=== PATIENT | female | born 1975 | race Two or more races ===

== ENCOUNTER 2016-09-27 20:16 | Emergency (ER) | payer SELFPAY ==
[~2016-09-27] VITALS: Ht 152.4 cm; Wt 76.7 kg
[2016-09-27 20:20] VITALS: BP 164/90
[2016-09-27] MEDS ORDERED: LISI2.5T PO (20:29)
[2016-09-27] MEDS ORDERED: ESOM20CA PO (20:29)
[2016-09-27] MEDS ORDERED: HYDR12.53 PO (20:29)
[2016-09-27] MEDS ORDERED: KETOROLAC TROMETHAMINE 30 MG/ML INJ. IV ONE (20:45)
[2016-09-27] MEDS ORDERED: MORPHINE SULFATE 10 MG/ML VIAL. IV ONE (20:45)
[2016-09-27] MEDS ORDERED: IV NORMAL SALINE 1000ML BAG 1,000 ML IV ONE (20:45)
[2016-09-27] MEDS ORDERED: ONDANSETRON PF 4 MG/2 ML VIAL. IV ONE (20:45)
--- NOTE | 2016-09-27 20:45 | PHYS DOC ---
Past Medical History Past Medical History: GERD, Hypertension Past Surgical History: Other Alcohol Use: Occasionally Drug Use: None Adult General Chief Complaint Chief Complaint: FLANK PAIN HPI HPI Patient is a 41 year old female with history of hypertension and acid reflux who presents today with moderate left flank pain radiating to the left upper quadrant that began yesterday. Patient denies any nausea or urgency frequency dysuria or hematuria. Denies any previous history of kidney stones. Denies any history of alcohol abuse. Review of Systems Review of Systems Constitutional: Denies fever or chills [] Eyes: Denies change in visual acuity, redness, or eye pain [] HENT: Denies nasal congestion or sore throat [] Respiratory: Denies cough or shortness of breath [] Cardiovascular: No additional information not addressed in HPI [] GI: Denies abdominal pain, nausea, vomiting, bloody stools or diarrhea [] : Left flank pain Musculoskeletal: Denies back pain or joint pain [] Integument: Denies rash or skin lesions [] Neurologic: Denies headache, focal weakness or sensory changes [] Endocrine: Denies polyuria or polydipsia [] Current Medications Current Medications Current Medications Medications (Trade) Dose Ordered Sig/Imani Start Time Stop Time Status Last Admin Dose Admin Ketorolac Tromethamine (Toradol) 30 mg 1X ONCE 09/27/16 20:45 09/27/16 20:46 DC 09/27/16 21:00 30 MG Morphine Sulfate 5 mg 1X ONCE 09/27/16 20:45 09/27/16 20:46 DC 09/27/16 21:01 5 MG Ondansetron HCl (Zofran) 4 mg 1X ONCE 09/27/16 20:45 09/27/16 20:46 DC 09/27/16 21:00 4 MG Sodium Chloride 1,000 ml @ 1,000 mls/hr 1X ONCE 09/27/16 20:45 09/27/16 21:44 DC 09/27/16 21:00 1,000 MLS/HR Allergies Allergies Allergies Coded Allergies Type Severity Reaction Last Updated Verified No Known Drug Allergies 09/27/16 No Physical Exam Physical Exam Constitutional: Well developed, well nourished, no acute distress, non-toxic appearance. [] HENT: Normocephalic, atraumatic, bilateral external ears normal, oropharynx moist, no oral exudates, nose normal. [] Eyes: PERRLA, EOMI, conjunctiva normal, no discharge. [] Neck: Normal range of motion, no tenderness, supple, no stridor. [] Cardiovascular:Heart rate regular rhythm, no murmur [] Lungs & Thorax: Bilateral breath sounds clear to auscultation [] Abdomen: Bowel sounds normal, soft, no tenderness, no masses, no pulsatile masses. [] Skin: Warm, dry, no erythema, no rash. [] Back: No tenderness, mild left CVA tenderness. [] Extremities: No tenderness, no cyanosis, no clubbing, ROM intact, no edema. [] Neurologic: Alert and oriented X 3, normal motor function, normal sensory function, no focal deficits noted. [] Psychologic: Affect normal, judgement normal, mood normal. [] Current Patient Data Vital Signs Vital Signs Date Time Temp Pulse Resp B/P (MAP) Pulse Ox O2 Delivery O2 Flow Rate FiO2 09/27/16 21:01 20 99 09/27/16 20:20 98.7 90 164/90 (114) Room Air 98.7 Lab Values Laboratory Tests Test 09/27/16 19:43 09/27/16 20:25 09/27/16 20:45 POC Urine HCG, Qualitative Hcg negative (Negative) Urine Collection Type Unknown Urine Color Yellow Urine Clarity Clear Urine pH 6.5 Urine Specific [place] 1.025 Urine Protein Negative mg/dL (NEG-TRACE) Urine Glucose (UA) Negative mg/dL (NEG) Urine Ketones (Stick) Negative mg/dL (NEG) Urine Blood Large (NEG) Urine Nitrite Negative (NEG) Urine Bilirubin Negative (NEG) Urine Urobilinogen Dipstick 1.0 mg/dL (0.2 mg/dL) Urine Leukocyte Esterase Small (NEG) Urine RBC >40 /HPF (0-2) Urine WBC 5-10 /HPF (0-4) Urine Squamous Epithelial Cells Many /LPF Urine Bacteria Moderate /HPF (0-FEW) Urine Opiates Screen Neg (NEG) Urine Methadone Screen Neg (NEG) Urine Barbiturates Neg (NEG) Urine Phencyclidine Screen Neg (NEG) Urine Amphetamine/Methamphetamine Neg (NEG) Urine Benzodiazepines Screen Neg (NEG) Urine Cocaine Screen Neg (NEG) Urine Cannabinoids Screen Neg (NEG) Urine Ethyl Alcohol Neg (NEG) White Blood Count 8.6 x10^3/uL (4.0-11.0) Red Blood Count 4.15 x10^6/uL (3.50-5.40) Hemoglobin 11.6 g/dL (12.0-15.5) L Hematocrit 34.8 % (36.0-47.0) L Mean Corpuscular Volume 84 fL (79-100) Mean Corpuscular Hemoglobin 28 pg (25-35) Mean Corpuscular Hemoglobin Concent 33 g/dL (31-37) Red Cell Distribution Width 14.2 % (11.5-14.5) Platelet Count 279 x10^3/uL (140-400) Neutrophils (%) (Auto) 59 % (31-73) Lymphocytes (%) (Auto) 33 % (24-48) Monocytes (%) (Auto) 6 % (0-9) Eosinophils (%) (Auto) 2 % (0-3) Basophils (%) (Auto) 1 % (0-3) Neutrophils # (Auto) 5.0 x10^3uL (1.8-7.7) Lymphocytes # (Auto) 2.8 x10^3/uL (1.0-4.8) Monocytes # (Auto) 0.5 x10^3/uL (0.0-1.1) Eosinophils # (Auto) 0.2 x10^3/uL (0.0-0.7) Basophils # (Auto) 0.1 x10^3/uL (0.0-0.2) Sodium Level 143 mmol/L (136-145) Potassium Level 3.4 mmol/L (3.5-5.1) L Chloride Level 106 mmol/L (98-107) Carbon Dioxide Level 27 mmol/L (21-32) Anion Gap 10 (6-14) Blood Urea Nitrogen 13 mg/dL (7-20) Creatinine 0.8 mg/dL (0.6-1.0) Estimated GFR (Cockcroft-Gault) 78.7 BUN/Creatinine Ratio 16 (6-20) Glucose Level 155 mg/dL (70-99) H Calcium Level 8.5 mg/dL (8.5-10.1) Total Bilirubin 0.3 mg/dL (0.2-1.0) Aspartate Amino Transferase (AST) 19 U/L (15-37) Alanine Aminotransferase (ALT) 32 U/L (14-59) Alkaline Phosphatase 112 U/L (46-116) Total Protein 7.5 g/dL (6.4-8.2) Albumin 3.5 g/dL (3.4-5.0) Albumin/Globulin Ratio 0.9 (1.0-1.7) L Lipase 135 U/L (73-393) Ethyl Alcohol Level < 10 mg/dL (0-10) Laboratory Tests 09/27/16 20:45 Laboratory Tests 09/27/16 20:45 EKG EKG [] Radiology/Procedures Radiology/Procedures [] Course & Med Decision Making Course & Med Decision Making Pertinent Labs and Imaging studies reviewed. (See chart for details) This is a 41-year-old female patient who presents today ED today with left flank pain radiating to the left upper quadrant that began yesterday. Negative urine hCG. Urine positive for infection. CBC CMP lipase with no acute findings. CT of the abdomen and pelvic is negative for any acute findings. Patient was discharged with Cipro Ultram and promethazine. Follow-up with PCP in 1-2 weeks. Instructed to return to the ED if symptoms worsen. Dragon Disclaimer Dragon Disclaimer This electronic medical record was generated, in whole or in part, using a voice recognition dictation system. Departure Departure Impression: Primary Impression: Pyelonephritis Disposition: 01 HOME, SELF-CARE Condition: STABLE Patient Instructions: Pyelonephritis, Adult, [id number] Additional Instructions: You were seen with a kidney infection. Take the antibiotics prescribed as ordered ensure you complete them. Come back to the ED if symptoms worsen otherwise follow-up with your own doctor in 1-2 weeks. Scripts Promethazine Hcl (PROMETHAZINE HCL) 25 Mg Tablet 1 TAB PO PRN Q6HRS, #20 TAB Prov: MUTCANDYAALEXANDRA POLITICAL REPORTER 09/27/16 Tramadol Hcl (ULTRAM) 50 Mg Tablet 1 TAB PO Q6HRS, #30 TAB Prov: MUTUNGAALEXANDRA POLITICAL REPORTER 09/27/16 Ciprofloxacin Hcl (CIPRO) 500 Mg Tablet 1 TAB PO BID, #14 TAB Prov: MUTUNGAALEXANDRA POLITICAL REPORTER 09/27/16 MUTUNGAALEXANDRA POLITICAL REPORTER Sep 27, 2016 20:45
[2016-09-27 20:52] LABS: BASO # 0.1 x10^3/uL (0.0-0.2); BASO % 1 % (0-3); EOS % 2 % (0-3); HEMATOCRIT 34.8 % (36.0-47.0); HEMOGLOBIN 11.6 g/dL (12.0-15.5); LYMPH # 2.8 x10^3/uL (1.0-4.8); LYMPH % 33 % (24-48); MEAN CORPUSCULAR HEMOGLOBIN 28 pg (25-35); MEAN CORPUSCULAR HGB CONC 33 g/dL (31-37); MEAN CORPUSCULAR VOLUME 84 fL (79-100); MONO % 6 % (0-9); NEUT % 59 % (31-73); PLATELET COUNT 279 x10^3/uL (140-400); RED BLOOD COUNT 4.15 x10^6/uL (3.50-5.40); RED CELL DISTRIBUTION WIDTH 14.2 % (11.5-14.5); WHITE BLOOD COUNT 8.6 x10^3/uL (4.0-11.0)
[2016-09-27 20:56] LABS: BILIRUBIN,URINE NEGATIVE (NEG); GLUCOSE,URINE NEGATIVE (NEG); NITRITE,URINE NEGATIVE (NEG); PH,URINE 6.5; PROTEIN,URINE NEGATIVE (NEG-TRACE)
[2016-09-27 21:05] LABS: CALCIUM 8.5 mg/dL (8.5-10.1); CREATININE 0.8 mg/dL (0.6-1.0); GFR 78.7; POTASSIUM 3.4 mmol/L (3.5-5.1)
[2016-09-27 21:06] LABS: BARBITURATES NEG (NEG); BENZODIAZEPINES NEG (NEG); CANNABINOIDS NEG (NEG); COCAINE NEG (NEG); METHADONE NEG (NEG); OPIATES NEG (NEG); PHENCYCLIDINE NEG (NEG)
--- NOTE | 2016-09-27 21:10 | RAD ---
Indication: Left flank pain for 2 days. Axial imaging through the abdomen and pelvis was performed without contrast. One or more of the following individualized dose reduction techniques were utilized for this examination: 1. Automated exposure control 2. Adjustment of the mA and/or kV according to patient size 3. Use of iterative reconstruction technique No prior studies are available for comparison. The lung bases are clear. The liver is unremarkable. The gallbladder is contracted. The pancreas and spleen are unremarkable. No adrenal mass is detected. No renal calculi or hydronephrosis is seen. No ureteral calculi are detected. The aorta is nonaneurysmal. The small and large bowel loops are normal caliber. There is no ascites. The uterus and bladder are unremarkable. No acute bony abnormality is detected. IMPRESSION: Unremarkable noncontrast CT of the abdomen and pelvis. Electronically signed by: Tod Higuera MD (09/27/2016 9:07 PM) [facility]
[2016-09-27 21:18] LABS: BACTERIA,URINE MODERATE /HPF (0-FEW); RBC,URINE >40 /HPF (0-2); SQUAMOUS EPITHELIAL CELL,UR MANY /LPF
[2016-09-27 21:21] LABS: ALBUMIN 3.5 g/dL (3.4-5.0); ALBUMIN/GLOBULIN RATIO 0.9 (1.0-1.7); TOTAL BILIRUBIN 0.3 mg/dL (0.2-1.0); TOTAL PROTEIN 7.5 g/dL (6.4-8.2)
[2016-09-27] MEDS ORDERED: CIPR500T94 PO (21:50)
[2016-09-27] MEDS ORDERED: PROM25TA10 PO (21:50)
[2016-09-27] MEDS ORDERED: TRAM-48 PO (21:50)
== END 2016-09-27 22:00 | disposition home or self-care (01) ==
LOC: ER 20:16
DX: N12 Tubulo-interstitial nephritis, not specified as acute or chronic (principal); I10 Essential (primary) hypertension; K21.9 Gastro-esophageal reflux disease without esophagitis
CPT/HCPCS: 36415; 74176; 80053; 80307; 81001; 81025; 83690; 85025; 87086; 96361; 96374; 96375; 99285; G0480; J1885; J2270; J2405; J7030; 87186; G0479

== ENCOUNTER 2020-05-02 18:19 | Observation (INO) | payer SELFPAY ==
[~2020-05-02] VITALS: Ht 152.4 cm; Wt 78.5 kg
[~2020-05-02 18:19] MED LIST: CIPR500T94 PO; ESOM20CA PO; HYDR12.575 PO; LISI2.5T PO; PROM25TA10 PO; TRAM-48 PO
--- NOTE | 2020-05-02 22:07 | PHYS DOC ---
Past Medical History Past Medical History: GERD, Hypertension Past Surgical History: Other Smoking Status: Never Smoker Alcohol Use: Occasionally Drug Use: None General Adult EDM: Chief Complaint: FLANK PAIN HPI: HPI: Patient is a 45 year old female with history of hypertension presents emergency department for flank pain and abdominal pain. Patient reports pain started around 1 PM this afternoon. Located in the left side of the back radiates around to the front of the abdomen. Patient has never had pain like this in the past. She has had some dysuria. She has had some nausea and vomiting. No hematuria vaginal bleeding vaginal discharge vomiting diarrhea constipation chest pain shortness breath fever chills. Patient has had sections. No other abdominal surgeries. Review of Systems: Review of Systems: Review of Systems: Constitutional: Denies fever or chills Eyes: Denies redness or eye pain HENT: Denies nasal congestion or sore throat Respiratory: Denies cough or shortness of breath Cardiovascular: Denies chest pain or palpitations GI: denies denies vomiting or diarrhea : Denieshematuria Musculoskeletal: Denies back pain or joint pain Integument: Denies rash or skin lesions Neurologic: Denies headache, focal weakness or sensory changes Heart Score: C/O Chest Pain: No Allergies: Allergies: Allergies Coded Allergies Type Severity Reaction Last Updated Verified No Known Drug Allergies 09/27/16 No Physical Exam: PE: *GENERAL APPEARANCE: Awake and alert. Cooperative. No acute distress. Non toxic appearing. HEAD: Normocephalic. Atraumatic. EYES: EOM's grossly intact. Sclera anicteric. Conjunctiva clear ENT:. Airway patent. Mucous membranes moist. No trismus. Tolerating secretions. NECK: Supple. Trachea midline. HEART: Regular rate and rhythm. Radial pulses 2+. Good capillary refill. LUNGS: Respirations unlabored. Clear to auscultation bilaterally. No rales, rhonchi, wheezing or retractions. ABDOMEN: Soft.No guarding or rebound. Left CVA tenderness. Diffuse lower abdominal tenderness. No palpable or pulsatile mass. EXTREMITIES: No acute deformities. No edema, erythema or calf tenderness. SKIN: Warm and dry. No rash. NEUROLOGICAL: Alert and oriented x3. No gross neurological deficits. Moves all 4 extremities spontaneously. PSYCHIATRIC: Normal mood. EKG: EKG: [] Radiology/Procedures: Radiology/Procedures: []PATIENT: EVETTE EISENBERGCOUNT: [id number]#: [id number] : 1975 LOCATION: ER AGE: 45 SEX: F EXAM STATUS: REG ER ORD. PHYSICIAN: MERLE PARKER DO REASON: flank pain and lower abd pain PROCEDURE: CT ABD PELV W/ IV CONTRST ONLY CT abdomen and pelvis with contrast: Reason for examination: Flank pain and lower abdominal pain. Comparison is made to previous study dated 09/23/2016. Helical images were obtained through the abdomen and pelvis with intravenous administration of 75 cc Omnipaque 300. Reconstruction was performed in sagittal and coronal planes. Exposure: One or more of the following individualized dose reduction techniques were utilized for this examination: 1. Automated exposure control 2. Adjustment of the mA and/or kV according to patient size 3. Use of iterative reconstruction technique. The lung bases are clear. The heart size is normal with no pericardial effusion. No abnormality seen at the liver, spleen, adrenal glands, gallbladder or pancreas. The abdominal aorta and inferior vena cava show no gross abnormalities. Colon shows no diverticulosis, diverticulitis or colitis. There is no evidence of appendicitis. The small intestinal tract shows no abnormal dilatation, wall thickening or obstruction. No abnormality is seen at the stomach or duodenum. The kidneys show a small nonobstructing calculus at the midpole of the left kidney. No hydronephrosis or obstructive uropathy is evident. Note is made of tiny cysts bilaterally. No abnormality is seen at the bladder, uterus or ovaries. No pelvic masses are seen. No free fluid or free air seen in the abdomen or pelvis. No acute bony abnormalities are seen. IMPRESSION: Tiny cysts bilaterally in the kidneys. Small nonobstructing calculus at the midpole the left kidney but no hydronephrosis or obstructive uropathy evident. Electronically signed by: Amy Cartwright MD (05/02/2020 11:33 PM) [facility] DICTATED and SIGNED BY: AMY CARTWRIGHT MD DATE: 05/02/20 [id number] 0 Course & Med Decision Making: Course & Med Decision Making Medical decision making: This is a 45-year-old female presents with left-sided flank pain abdominal pain nausea vomiting dysuria. Here in the emergency department patient appears no acute distress. Afebrile. Not tachycardic. Blood pressure stable. White blood cell count of 13. Lactate 0.8. Creatinine 0.7. Patient has urinary tract infection. hCG negative. CT scan shows tiny bilateral cyst. Mild nonobstructing calculus in the midpole of left kidney. Patient was given Rocephin fluids and pain medication. At this time based on patient's symptoms and findings will admit to the hospital for further observation and evaluation. Spoke with patient. Agreeable to admission. They are aware of all labs and imaging. All questions answered and patient stable at time of admission. Dragon Disclaimer: [employer] Disclaimer: This electronic medical record was generated, in whole or in part, using a voice recognition dictation system. Departure Departure Impression: Primary Impression: Pyelonephritis Additional Impression: Left flank pain Disposition: ADMITTED INPT THIS HOSP (Patient admitted to Dr. Mendoza at 0015. Patient stable at time of admission. Discussed case with Dr. Mendoza agreeable to admission and plan. We will see the patient.) Admitting Physician: BARB (Admitted on May 03, [address] Chow. Patient stable at time of admission.) Condition: GOOD Referrals: UNKNOWN PCP NAME (PCP) Scripts Sulfamethoxazole/Trimethoprim (BACTRIM DS TABLET) 1 Each Tablet 1 TAB PO BID for Pyelonephritis for 7 Days, #14 TAB 0 Refills Prov: FORREST YOUNG MD 05/04/20 Lactobacillus Rhamnosus Gg (CULTURELLE) 1 Each Cap.sprink 1 CAP PO BID for UTI for 7 Days, #14 CAP Prov: FORREST YOUNG MD 05/04/20 Tramadol Hcl (ULTRAM) 50 Mg Tablet 1 TAB PO PRN Q6HRS PRN for PAIN for 6 Days, #20 TAB Prov: FORREST YOUNG MD 05/04/20 MERLE PARKER DO May 02, 2020 22:07
[2020-05-02 22:14] LABS: BILIRUBIN,URINE NEGATIVE (NEG); CLARITY,URINE CLEAR; COLOR,URINE YELLOW; NITRITE,URINE NEGATIVE (NEG); PROTEIN,URINE NEGATIVE (NEG-TRACE); UROBILINOGEN,URINE 0.2 mg/dL (0.2 mg/dL)
[2020-05-02 22:19] LABS: BACTERIA,URINE MODERATE /HPF (0-FEW)
[2020-05-02 22:20] LABS: RBC,URINE 0 /HPF (0-2)
[2020-05-02 22:24] LABS: BASO % 0 % (0-3); EOS # 0.1 x10^3/uL (0.0-0.7); EOS % 1 % (0-3); HEMATOCRIT 38.1 % (36.0-47.0); HEMOGLOBIN 12.2 g/dL (12.0-15.5); LYMPH # 1.5 x10^3/uL (1.0-4.8); LYMPH % 12 % (24-48); MEAN CORPUSCULAR HEMOGLOBIN 28 pg (25-35); MEAN CORPUSCULAR HGB CONC 32 g/dL (31-37); MEAN CORPUSCULAR VOLUME 87 fL (79-100); MONO # 0.9 x10^3/uL (0.0-1.1); MONO % 7 % (0-9); NEUT # 10.7 x10^3/uL (1.8-7.7); NEUT % 81 % (31-73); PLATELET COUNT 246 x10^3/uL (140-400); RED BLOOD COUNT 4.37 x10^6/uL (3.50-5.40); RED CELL DISTRIBUTION WIDTH 13.5 % (11.5-14.5); WHITE BLOOD COUNT 13.1 x10^3/uL (4.0-11.0)
[2020-05-02] MEDS ORDERED: ONDANSETRON PF 4 MG/2 ML VIAL. IVP ONE (22:30)
[2020-05-02] MEDS ORDERED: MORPHINE SULFATE 4 MG/ML VIAL. IV ONE (22:30)
[2020-05-02 22:32] LABS: CALCIUM 8.8 mg/dL (8.5-10.1); CREATININE 0.7 mg/dL (0.6-1.0); GFR 90.1; POTASSIUM 3.5 mmol/L (3.5-5.1)
[2020-05-02 22:38] LABS: ALBUMIN 3.8 g/dL (3.4-5.0); TOTAL BILIRUBIN 0.6 mg/dL (0.2-1.0); TOTAL PROTEIN 7.8 g/dL (6.4-8.2)
[2020-05-02] MEDS ORDERED: IOHEXOL 300 MG/ML 100ML VIAL. ONE (22:45)
[2020-05-02] MEDS ORDERED: CONTRAST GIVEN. MC PRN (22:45)
[2020-05-02] MEDS ORDERED: IOHEXOL 300 MG/ML 100ML VIAL. IV ONE (23:00)
--- NOTE | 2020-05-02 23:36 | RAD ---
CT abdomen and pelvis with contrast: Reason for examination: Flank pain and lower abdominal pain. Comparison is made to previous study dated 09/23/2016. Helical images were obtained through the abdomen and pelvis with intravenous administration of 75 cc Omnipaque 300. Reconstruction was performed in sagittal and coronal planes. Exposure: One or more of the following individualized dose reduction techniques were utilized for thi s examination: 1. Automated exposure control 2. Adjustment of the mA and/or kV according to patient size 3. Use of iterative reconstruction technique. The lung bases are clear. The heart size is normal with no pericardial effusion. No abnormality seen at the liver, spleen, adrenal glands, gallbladder or pancreas. The abdominal aort a and inferior vena cava show no gross abnormalities. Colon shows no diverticulosis, diverticulitis o r colitis. There is no evidence of appendicitis. The small intestinal tract shows no abnormal dilatat ion, wall thickening or obstruction. No abnormality is seen at the stomach or duodenum. The kidneys s how a small nonobstructing calculus at the midpole of the left kidney. No hydronephrosis or obstructi ve uropathy is evident. Note is made of tiny cysts bilaterally. No abnormality is seen at the bladder, uterus or ovaries. No pelvic masses are seen. No free fluid or free air seen in the abdomen or pelvis. No acute bony abnormalities are seen. IMPRESSION: Tiny cysts bilaterally in the kidneys. Small nonobstructing calculus at the midpole the left kidney but no hydronephrosis or obstructive uro rony evident. Electronically signed by: Amy Alaniz MD (05/02/2020 11:33 PM) [facility]
[2020-05-03] MEDS ORDERED: cefTRIAXone IV Push 1 GM VIAL. IVP ONE
[2020-05-03] MEDS ORDERED: ONDANSETRON PF 4 MG/2 ML VIAL. IV PRN ×2 (00:15→08:15)
[2020-05-03] MEDS: MORPHINE SULFATE 2 MG/ML VIAL. IV PRN ×2 (00:51→03:17)
[2020-05-03 02:50] VITALS: BP 99/57
--- NOTE | 2020-05-03 02:50 | NUR ---
Admit from ED via W/c. C/o left flank pain since 05/01 at 1000. Togolese is primary language.
[2020-05-03 07:15] VITALS: BP 112/55
--- NOTE | 2020-05-03 07:21 | NUR ---
Cleared reassessments from ED on [facility].
--- NOTE | 2020-05-03 08:12 | PDOC1 ---
History and Physical Date of Admission Date of Admission DATE: 05/03/20 TIME: 08:06 Identification/Chief Complaint Chief Complaint Abdominal pain Source Source: Patient History of Present Illness History of Present Illness Ms Groves is a 45 year old female with history of hypertension and GERD who presents emergency department c/o left flank pain and abdominal pain. Patient reports pain started at 1300 on 05/02/20. Located in the left side of the back radiates around to the front of the abdomen. Patient has never had pain like this in the past. She has had some dysuria. She has had some nausea and vomiting. No hematuria vaginal bleeding vaginal discharge vomiting diarrhea constipation chest pain shortness breath fever chills. Patient has had sections. No other abdominal surgeries. No vaginal discharge, no diarrhea. Significant nausea with dry heaving. Pain is colicky, comes in waves. WBC 13. CT with non-obstructing small left renal stone, no appendicitis. Admitted for further care. Past Medical History Cardiovascular: HTN GI: GERD Past Surgical History Past Surgical History: Family History Family History: Hypertension Social History Smoke: No ALCOHOL: social Drugs: None Current Problem List Problem List Problems Medical Problems: (1) Left flank pain Status: Acute (2) Pyelonephritis Status: Acute Current Medications Current Medications Current Medications Morphine Sulfate (Morphine Sulfate) 4 mg 1X ONCE IV Last administered on 05/02/20at 22:23; Start 05/02/20 at 22:30; Stop 05/02/20 at 22:31; Status DC Ondansetron HCl (Zofran) 4 mg 1X ONCE IVP Last administered on 05/02/20at 22:23; Start 05/02/20 at 22:30; Stop 05/02/20 at 22:31; Status DC Iohexol (Omnipaque 300 Mg/ml) 75 ml 1X ONCE IV ; Start 05/02/20 at 23:00; Stop 05/02/20 at 23:01; Status DC Info (CONTRAST GIVEN -- Rx MONITORING) 1 each PRN DAILY PRN MC SEE COMMENTS; Start 05/02/20 at 22:45; Stop 05/04/20 at 22:44 Iohexol (Omnipaque 300 Mg/ml) 100 ml STK-MED ONCE .ROUTE ; Start 05/02/20 at 22:45; Stop 05/02/20 at 22:45; Status DC Ceftriaxone Sodium (Rocephin) 1 gm 1X ONCE IVP Last administered on 05/03/20at 00:51; Start 05/03/20 at 00:00; Stop 05/03/20 at 00:01; Status DC Sodium Chloride 1,000 ml @ 1,000 mls/hr 1X ONCE IV Last administered on 05/03/20at 00:50; Start 05/03/20 at 00:00; Stop 05/03/20 at 00:59; Status DC Ondansetron HCl (Zofran) 4 mg PRN Q8HRS PRN IV NAUSEA/VOMITING 1ST CHOICE; Start 05/03/20 at 00:15; Stop 05/04/20 at 00:14 Morphine Sulfate (Morphine Sulfate) 2 mg PRN Q2HR PRN IV SEVERE PAIN 7-10 Last administered on 05/03/20at 03:17; Start 05/03/20 at 00:15; Stop 05/04/20 at 00:14 Active Scripts Active Promethazine Hcl 25 Mg Tablet 1 Tab PO PRN Q6HRS Ultram (Tramadol Hcl) 50 Mg Tablet 1 Tab PO Q6HRS Cipro (Ciprofloxacin Hcl) 500 Mg Tablet 1 Tab PO BID Reported Nexium Capsule (Esomeprazole Magnesium) 20 Mg Capsule.dr 1 Cap PO DAILY Hydrochlorothiazide Capsule (Hydrochlorothiazide) 12.5 Mg Capsule 1 Cap PO DAILY Lisinopril 2.5 Mg Tablet 1 Tab PO DAILY Allergies Allergies: Coded Allergies: No Known Drug Allergies (Unverified , 09/27/16) ROS General: YES: Chills, Night Sweats, Fatigue, Malaise, Appetite; No: Other PSYCHOLOGICAL ROS: No: Anxiety, Behavioral Disorder, Concentration difficultie, Decreased libido, Depression, Disorientation, Hallucinations, Hostility, Irritablity, Memory difficulties, Mood Swings, Obsessive thoughts, Physical abuse, Sexual abuse, Sleep disturbances, Suicidal ideation, Other Eyes: No Blurry vision, No Decreased vision, No Double vision, No Dry eyes, No Excessive tearing, No Eye Pain, No Itchy Eyes, No Loss of vision, No Photophobia, No Scotomata, No Uses contacts, No Uses glasses, No Other HEENT: No: Heacaches, Visual Changes, Hearing change, Nasal congestion, Nasal discharge, Oral lesions, Sinus pain, Sore Throat, Epistaxis, Sneezing, Snoring, Tinnitus, Vertigo, Vocal changes, Other ALLERGY AND IMMUNOLOGY: No: Hives, Insect Bite Sensitivity, Itchy/Watery Eyes, Nasal Congestion, Post Nasal Drip, Seasonal Allergies, Other Hematological and Lymphatic: No: Bleeding Problems, Blood Clots, Blood Transfusions, Brusing, Night Sweats, Pallor, Swollen Lymph Nodes, Other ENDOCRINE: No: Breast Changes, Galactorrhea, Hair Pattern Changes, Hot Flashes, Malaise/lethargy, Mood Swings, Palpitations, Polydipsia/polyuria, Skin Changes, Temperature Intolerance, Unexpected Weight Changes, Other Breast: No New/Changing Breast Lumps, No Nipple changes, No Nipple discharge, No Other Respiratory: No: Cough, Hemoptysis, Orthopnea, Pleuritic Pain, Shortness of breath, SOB with excertion, Sputum Changes, Stridor, Tachypnea, Wheezing, Other Cardiovascular: No Chest Pain, No Palpitations, No Orthopnea, No Paroxysmal Noc. Dyspnea, No Edema, No Lt Headedness, No Other Gastrointestinal: No Nausea, No Vomiting, No Abdominal Pain, No Diarrhea, No Constipation, No Melena, No Hematochezia, No Other Genitourinary: No Dysuria, No Frequency, No Incontinence, No Hematuria, No Retention, No Discharge, No Urgency, No Pain, No Flank Pain, No Other, No , No , No , No , No , No , No Musculoskeletal: No Gait Disturbance, No Joint Pain, No Joint Stiffness, No Joint Swelling, No Muscle Pain, No Muscular Weakness, No Pain In:, No Swelling In:, No Other Neurological: No Behavorial Changes, No Bowel/Bladder ControlChng, No Confusion, No Dizziness, No Gait Disturbance, No Headaches, No Impaired Coord/balance, No Memory Loss, No Numbness/Tingling, No Seizures, No Speech Problems, No Tremors, No Visual Changes, No Weakness, No Other Skin: No Dry Skin, No Eczema, No Hair Changes, No Lumps, No Mole Changes, No Mottling, No Nail Changes, No Pruritus, No Rash, No Skin Lesion Changes, No Other, No Acne Physical Exam General: Alert, Oriented X3, Cooperative, moderate distress HEENT: Atraumatic, PERRLA, EOMI, Mucous membr. moist/pink Lungs: Clear to auscultation, Normal air movement Heart: S1S2, RRR, no thrills, no rubs, no gallops, no murmurs Abdomen: Normal bowel sounds, Soft, No hepatosplenomegaly, No masses, Other (Left flank pain, positive) Rectal Exam: not examined Extremities: No clubbing, No cyanosis, No edema, Normal pulses, No tenderness/swelling Skin: No rashes, No breakdown, No significant lesion Neuro: Normal gait, Normal speech, Strength at 5/5 X4 ext, Normal tone, Sensation intact, Cranial nerves 3-12 NL, Reflexes 2+ Psych/Mental Status: Mental status NL, Mood NL Vitals Vitals Vital Signs Date Time Temp Pulse Resp B/P (MAP) Pulse Ox O2 Delivery O2 Flow Rate FiO2 05/03/20 07:15 99.8 97 20 112/55 (74) 96 Room Air 99.8 Labs Labs Laboratory Tests Test 05/02/20 21:31 05/02/20 22:07 05/02/20 22:08 05/03/20 00:35 Urine Collection Type Unknown Urine Color Yellow Urine Clarity Clear Urine pH 7.0 (<5.0-8.0) Urine Specific [place] <=1.005 (1.000-1.030) Urine Protein Negative mg/dL (NEG-TRACE) Urine Glucose (UA) Negative mg/dL (NEG) Urine Ketones (Stick) Negative mg/dL (NEG) Urine Blood Trace (NEG) Urine Nitrite Negative (NEG) Urine Bilirubin Negative (NEG) Urine Urobilinogen Dipstick 0.2 mg/dL (0.2 mg/dL) Urine Leukocyte Esterase Moderate (NEG) Urine RBC 0 /HPF (0-2) Urine WBC 5-10 /HPF (0-4) Urine Squamous Epithelial Cells Few /LPF Urine Bacteria Moderate /HPF (0-FEW) Bedside Urine HCG, Qualitative Hcg negative (Negative) White Blood Count 13.1 x10^3/uL (4.0-11.0) Red Blood Count 4.37 x10^6/uL (3.50-5.40) Hemoglobin 12.2 g/dL (12.0-15.5) Hematocrit 38.1 % (36.0-47.0) Mean Corpuscular Volume 87 fL (79-100) Mean Corpuscular Hemoglobin 28 pg (25-35) Mean Corpuscular Hemoglobin Concent 32 g/dL (31-37) Red Cell Distribution Width 13.5 % (11.5-14.5) Platelet Count 246 x10^3/uL (140-400) Neutrophils (%) (Auto) 81 % (31-73) Lymphocytes (%) (Auto) 12 % (24-48) Monocytes (%) (Auto) 7 % (0-9) Eosinophils (%) (Auto) 1 % (0-3) Basophils (%) (Auto) 0 % (0-3) Neutrophils # (Auto) 10.7 x10^3/uL (1.8-7.7) Lymphocytes # (Auto) 1.5 x10^3/uL (1.0-4.8) Monocytes # (Auto) 0.9 x10^3/uL (0.0-1.1) Eosinophils # (Auto) 0.1 x10^3/uL (0.0-0.7) Basophils # (Auto) 0.0 x10^3/uL (0.0-0.2) Sodium Level 137 mmol/L (136-145) Potassium Level 3.5 mmol/L (3.5-5.1) Chloride Level 104 mmol/L (98-107) Carbon Dioxide Level 22 mmol/L (21-32) Anion Gap 11 (6-14) Blood Urea Nitrogen 11 mg/dL (7-20) Creatinine 0.7 mg/dL (0.6-1.0) Estimated GFR (Cockcroft-Gault) 90.1 BUN/Creatinine Ratio 16 (6-20) Glucose Level 111 mg/dL (70-99) Calcium Level 8.8 mg/dL (8.5-10.1) Total Bilirubin 0.6 mg/dL (0.2-1.0) Aspartate Amino Transf (AST/SGOT) 15 U/L (15-37) Alanine Aminotransferase (ALT/SGPT) 26 U/L (14-59) Alkaline Phosphatase 87 U/L (46-116) Total Protein 7.8 g/dL (6.4-8.2) Albumin 3.8 g/dL (3.4-5.0) Albumin/Globulin Ratio 1.0 (1.0-1.7) Lactic Acid Level 0.8 mmol/L (0.4-2.0) Laboratory Tests Test 05/02/20 21:31 05/02/20 22:07 05/02/20 22:08 05/03/20 00:35 Urine Collection Type Unknown Urine Color Yellow Urine Clarity Clear Urine pH 7.0 (<5.0-8.0) Urine Specific [place] <=1.005 (1.000-1.030) Urine Protein Negative mg/dL (NEG-TRACE) Urine Glucose (UA) Negative mg/dL (NEG) Urine Ketones (Stick) Negative mg/dL (NEG) Urine Blood Trace (NEG) Urine Nitrite Negative (NEG) Urine Bilirubin Negative (NEG) Urine Urobilinogen Dipstick 0.2 mg/dL (0.2 mg/dL) Urine Leukocyte Esterase Moderate (NEG) Urine RBC 0 /HPF (0-2) Urine WBC 5-10 /HPF (0-4) Urine Squamous Epithelial Cells Few /LPF Urine Bacteria Moderate /HPF (0-FEW) Bedside Urine HCG, Qualitative Hcg negative (Negative) White Blood Count 13.1 x10^3/uL (4.0-11.0) Red Blood Count 4.37 x10^6/uL (3.50-5.40) Hemoglobin 12.2 g/dL (12.0-15.5) Hematocrit 38.1 % (36.0-47.0) Mean Corpuscular Volume 87 fL (79-100) Mean Corpuscular Hemoglobin 28 pg (25-35) Mean Corpuscular Hemoglobin Concent 32 g/dL (31-37) Red Cell Distribution Width 13.5 % (11.5-14.5) Platelet Count 246 x10^3/uL (140-400) Neutrophils (%) (Auto) 81 % (31-73) Lymphocytes (%) (Auto) 12 % (24-48) Monocytes (%) (Auto) 7 % (0-9) Eosinophils (%) (Auto) 1 % (0-3) Basophils (%) (Auto) 0 % (0-3) Neutrophils # (Auto) 10.7 x10^3/uL (1.8-7.7) Lymphocytes # (Auto) 1.5 x10^3/uL (1.0-4.8) Monocytes # (Auto) 0.9 x10^3/uL (0.0-1.1) Eosinophils # (Auto) 0.1 x10^3/uL (0.0-0.7) Basophils # (Auto) 0.0 x10^3/uL (0.0-0.2) Sodium Level 137 mmol/L (136-145) Potassium Level 3.5 mmol/L (3.5-5.1) Chloride Level 104 mmol/L (98-107) Carbon Dioxide Level 22 mmol/L (21-32) Anion Gap 11 (6-14) Blood Urea Nitrogen 11 mg/dL (7-20) Creatinine 0.7 mg/dL (0.6-1.0) Estimated GFR (Cockcroft-Gault) 90.1 BUN/Creatinine Ratio 16 (6-20) Glucose Level 111 mg/dL (70-99) Calcium Level 8.8 mg/dL (8.5-10.1) Total Bilirubin 0.6 mg/dL (0.2-1.0) Aspartate Amino Transf (AST/SGOT) 15 U/L (15-37) Alanine Aminotransferase (ALT/SGPT) 26 U/L (14-59) Alkaline Phosphatase 87 U/L (46-116) Total Protein 7.8 g/dL (6.4-8.2) Albumin 3.8 g/dL (3.4-5.0) Albumin/Globulin Ratio 1.0 (1.0-1.7) Lactic Acid Level 0.8 mmol/L (0.4-2.0) Images Images CT abdomen/pelvis: The lung bases are clear. The heart size is normal with no pericardial effusion. No abnormality seen at the liver, spleen, adrenal glands, gallbladder or pancreas. The abdominal aorta and inferior vena cava show no gross abnormalities. Colon shows no diverticulosis, diverticulitis or colitis. There is no evidence of appendicitis. The small intestinal tract shows no abnormal dilatation, wall thickening or obstruction. No abnormality is seen at the stomach or duodenum. The kidneys show a small nonobstructing calculus at the midpole of the left kidney. No hydronephrosis or obstructive uropathy is evident. Note is made of tiny cysts bilaterally. No abnormality is seen at the bladder, uterus or ovaries. No pelvic masses are seen. No free fluid or free air seen in the abdomen or pelvis. No acute bony abnormalities are seen. IMPRESSION: Tiny cysts bilaterally in the kidneys. Small nonobstructing calculus at the midpole the left kidney but no hydronephrosis or obstructive uropathy evident. VTE Prophylaxis Ordered VTE Prophylaxis Devices: No VTE Pharmacological Prophylaxi: No Assessment/Plan Assessment/Plan A/P: Left pyelonephritis - rocephin, toradol, nausea and pain control Sepsis - due to above Nausea and vomiting - admitted for inability to take PO. IVF and IV anti-emetics HTN - hold meds for low BP due to sepsis GERD - cont PPI FEN - General diet PPX - SCDs FULL CODE Dispo - inpatient for pyelonephritis, sepsis Justifications for Admission Other Justification FORREST YOUNG MD May 03, 2020 08:12
[2020-05-03] MEDS ORDERED: IV NORMAL SALINE 1000ML BAG 1,000 ML IV ONE ×2 (08:15)
[2020-05-03] MEDS ORDERED: KETOROLAC 30 MG/ML VIAL. IVP PRN (08:15)
[2020-05-03] MEDS: LOSARTAN POTASSIUM 25 MG TABLET. PO SCH (09:00)
--- NOTE | 2020-05-03 09:19 | NUR ---
SW following. Discussed with RN, pt from home, room air, regular diet. No consults as of yet. Med Assist following for self pay status. SW will continue to follow.
[2020-05-03 10:54] VITALS: BP 108/64
[2020-05-03] MEDS: cefTRIAXone IV Push 1 GM VIAL. IVP SCH (11:11)
[2020-05-03 14:58] VITALS: BP 102/59
[2020-05-03] MEDS ORDERED: MAGNESIUM HYDROXIDE 2,400 MG/30 ML ORAL.SUSP. PO PRN (17:45)
[2020-05-03] MEDS ORDERED: MAGNESIUM HYDROXIDE 2,400 MG/30 ML ORAL.SUSP. PO ONE (17:45)
[2020-05-03 19:00] VITALS: BP 99/56
[2020-05-03] MEDS: LACTOBACILLUS RHAMNOSUS GG 1 CAPSULE. PO SCH (20:43)
[2020-05-03 23:00] VITALS: BP 106/70
[2020-05-04 03:00] VITALS: BP 108/58
[2020-05-04 07:00] VITALS: BP 105/63
[2020-05-04 07:21] LABS: BASO % 0 % (0-3); EOS # 0.1 x10^3/uL (0.0-0.7); EOS % 2 % (0-3); HEMATOCRIT 35.5 % (36.0-47.0); HEMOGLOBIN 11.7 g/dL (12.0-15.5); LYMPH # 1.2 x10^3/uL (1.0-4.8); LYMPH % 15 % (24-48); MEAN CORPUSCULAR HEMOGLOBIN 29 pg (25-35); MEAN CORPUSCULAR HGB CONC 33 g/dL (31-37); MEAN CORPUSCULAR VOLUME 87 fL (79-100); MONO # 0.6 x10^3/uL (0.0-1.1); MONO % 8 % (0-9); NEUT # 5.6 x10^3/uL (1.8-7.7); NEUT % 75 % (31-73); PLATELET COUNT 203 x10^3/uL (140-400); RED BLOOD COUNT 4.08 x10^6/uL (3.50-5.40); RED CELL DISTRIBUTION WIDTH 13.9 % (11.5-14.5); WHITE BLOOD COUNT 7.5 x10^3/uL (4.0-11.0)
[2020-05-04 07:42] LABS: CALCIUM 8.4 mg/dL (8.5-10.1); CREATININE 0.7 mg/dL (0.6-1.0); GFR 90.1; POTASSIUM 3.5 mmol/L (3.5-5.1)
[2020-05-04] MEDS: LACTOBACILLUS RHAMNOSUS GG 1 CAPSULE. PO SCH (08:42)
[2020-05-04] MEDS: LOSARTAN POTASSIUM 25 MG TABLET. PO SCH (08:47)
--- NOTE | 2020-05-04 08:51 | PDOC ---
[employer] PROGRESS NOTE Date of Service DOS: DATE: 05/04/20 TIME: 08:50 Chief Complaint Chief Complaint A/P: Left pyelonephritis - rocephin, toradol, nausea and pain control. Urine culture with 100K cfu of e. coli, susceptibilities pending Sepsis - due to above Nausea and vomiting - admitted for inability to take PO. IVF and IV anti-emetics HTN - hold meds for low BP due to sepsis GERD - cont PPI FEN - General diet PPX - SCDs FULL CODE Dispo - inpatient for pyelonephritis, sepsis History of Present Illness History of Present Illness Ms Groves is a 45 year old female with history of hypertension and GERD who presents emergency department c/o left flank pain and abdominal pain. Patient reports pain started at 1300 on 05/02/20. Located in the left side of the back radiates around to the front of the abdomen. Patient has never had pain like this in the past. She has had some dysuria. She has had some nausea and vomiting. No hematuria vaginal bleeding vaginal discharge vomiting diarrhea constipation chest pain shortness breath fever chills. Patient has had sections. No other abdominal surgeries. No vaginal discharge, no diarrhea. S ignificant nausea with dry heaving. Pain is colicky, comes in waves. WBC 13. CT with non-obstructing small left renal stone, no appendicitis. Admitted for further care. 05/04: WBC 7.5. Afebrile. Left flank pain significantly improved. Asking for something p.o. instead of IV Toradol. Also still complaining of constipation asking for something in addition to the 3 bowel cathartic she has already received. Receiving third dose of Rocephin. Urine culture with 100,000 colony- forming units of E. coli no sensitivities available at this time. Based on patient improvement and improvement in sepsis discussed going home with 7 days of twice daily Bactrim given that she has received an appropriate IV course he can recover from pyelonephritis at home with tramadol. Given that she has a small left punctate renal stone advised to avoid hydrochlorothiazide and possibly switch from lisinopril to losartan to reduce her burden of possible nephrolithiasis. Has outpatient follow-up already scheduled at the [facility]. Vitals/I&O Vitals/I&O: Vital Signs Date Time Temp Pulse Resp B/P (MAP) Pulse Ox O2 Delivery O2 Flow Rate FiO2 05/04/20 07:00 97.9 96 18 105/63 (77) 96 Room Air 97.9 I & O 05/03/20 05/03/20 05/04/20 15:00 23:00 07:00 Intake Total 600 ml 360 ml Output Total 2 ml 0 ml Balance 598 ml 360 ml 0 ml Physical Exam General: Alert, Oriented X3, Cooperative, moderate distress Abdomen: Normal bowel sounds, Soft, No hepatosplenomegaly, No masses, Other (Left flank pain, positive) Extremities: No clubbing, No cyanosis, No edema, Normal pulses, No tenderness/swelling Skin: No rashes, No breakdown, No significant lesion Labs Labs: Laboratory Tests Test 05/04/20 05:55 White Blood Count 7.5 x10^3/uL (4.0-11.0) Red Blood Count 4.08 x10^6/uL (3.50-5.40) Hemoglobin 11.7 g/dL (12.0-15.5) Hematocrit 35.5 % (36.0-47.0) Mean Corpuscular Volume 87 fL (79-100) Mean Corpuscular Hemoglobin 29 pg (25-35) Mean Corpuscular Hemoglobin Concent 33 g/dL (31-37) Red Cell Distribution Width 13.9 % (11.5-14.5) Platelet Count 203 x10^3/uL (140-400) Neutrophils (%) (Auto) 75 % (31-73) Lymphocytes (%) (Auto) 15 % (24-48) Monocytes (%) (Auto) 8 % (0-9) Eosinophils (%) (Auto) 2 % (0-3) Basophils (%) (Auto) 0 % (0-3) Neutrophils # (Auto) 5.6 x10^3/uL (1.8-7.7) Lymphocytes # (Auto) 1.2 x10^3/uL (1.0-4.8) Monocytes # (Auto) 0.6 x10^3/uL (0.0-1.1) Eosinophils # (Auto) 0.1 x10^3/uL (0.0-0.7) Basophils # (Auto) 0.0 x10^3/uL (0.0-0.2) Sodium Level 141 mmol/L (136-145) Potassium Level 3.5 mmol/L (3.5-5.1) Chloride Level 106 mmol/L (98-107) Carbon Dioxide Level 24 mmol/L (21-32) Anion Gap 11 (6-14) Blood Urea Nitrogen 9 mg/dL (7-20) Creatinine 0.7 mg/dL (0.6-1.0) Estimated GFR (Cockcroft-Gault) 90.1 Glucose Level 99 mg/dL (70-99) Calcium Level 8.4 mg/dL (8.5-10.1) Assessment and Plan Assessmemt and Plan Problems Medical Problems: (1) Left flank pain Status: Acute (2) Pyelonephritis Status: Acute Comment Review of Relevant I have reviewed the following items tiff (where applicable) has been applied. Medications: Current Medications Medications (Trade) Dose Ordered Sig/Imani Route PRN Reason Start Time Stop Time Status Last Admin Dose Admin Ceftriaxone Sodium (Rocephin) 1 gm Q24H IVP 05/03/20 11:00 05/03/20 11:11 Lactobacillus Rhamnosus (Culturelle) 1 cap BID PO 05/03/20 21:00 05/04/20 08:42 Magnesium Hydroxide (Milk Of Magnesia) 2,400 mg 1X ONCE PO 05/03/20 17:45 05/03/20 17:46 DC 05/03/20 18:03 Justifications for Admission Other Justification FORREST YOUNG MD May 04, 2020 08:50
[2020-05-04] MEDS ORDERED: POTASSIUM CHLORIDE 20 MEQ TABLET.ER. PO ONE (09:00)
--- NOTE | 2020-05-04 09:22 | NUR ---
SW following. Discussed with RN, pt from home, room air, regular diet. Currently on IV rocephin. Med Assist screened pt, pt does not have any Medicaid qualifiers at this time. SW will continue to follow.
[2020-05-04] MEDS ORDERED: ACETAMINOPHEN 325 MG TABLET. PO PRN (10:30)
[2020-05-04] MEDS ORDERED: traMADol 50 MG TABLET PO PRN (10:30)
[2020-05-04] MEDS ORDERED: IBUPROFEN 200 MG TABLET. PO PRN (10:30)
[2020-05-04 11:00] VITALS: BP 103/70
[2020-05-04] MEDS: cefTRIAXone IV Push 1 GM VIAL. IVP SCH (11:02)
[2020-05-04] MEDS ORDERED: SMZ/TMP 800/160MG TABLET. PO SCH (12:00)
[2020-05-04] MEDS ORDERED: MAGNESIUM CITRATE 296 ML SOLUTION. PO ONE (12:00)
[2020-05-04] MEDS ORDERED: TRAM-48 PO (12:45)
[2020-05-04] MEDS ORDERED: LACT1CAP19 PO (12:45)
[2020-05-04] MEDS ORDERED: SULF1TAB24 PO (12:45)
--- NOTE | 2020-05-04 13:42 | PDOC3 ---
Discharge Summary Visit Information Date of Admission: May 03, 2020 Date of Discharge: May 04, 2020 Admitting Diagnosis: Left pyelonephritis Final Diagnosis Problems Medical Problems: (1) Left flank pain Status: Acute (2) Pyelonephritis Status: Acute Brief Hospital Course Allergies Allergies Coded Allergies Type Severity Reaction Last Updated Verified No Known Drug Allergies 09/27/16 No Vital Signs Vital Signs Date Time Temp Pulse Resp B/P (MAP) Pulse Ox O2 Delivery O2 Flow Rate FiO2 05/04/20 11:57 Room Air 05/04/20 11:00 98.0 90 16 103/70 (81) 97 98.0 Lab Results Laboratory Tests Test 05/02/20 21:31 05/02/20 22:07 05/02/20 22:08 05/03/20 00:35 Urine Collection Type Unknown Urine Color Yellow Urine Clarity Clear Urine pH 7.0 (<5.0-8.0) Urine Specific [place] <=1.005 (1.000-1.030) Urine Protein Negative mg/dL (NEG-TRACE) Urine Glucose (UA) Negative mg/dL (NEG) Urine Ketones (Stick) Negative mg/dL (NEG) Urine Blood Trace (NEG) Urine Nitrite Negative (NEG) Urine Bilirubin Negative (NEG) Urine Urobilinogen Dipstick 0.2 mg/dL (0.2 mg/dL) Urine Leukocyte Esterase Moderate (NEG) Urine RBC 0 /HPF (0-2) Urine WBC 5-10 /HPF (0-4) Urine Squamous Epithelial Cells Few /LPF Urine Bacteria Moderate /HPF (0-FEW) Bedside Urine HCG, Qualitative Hcg negative (Negative) White Blood Count 13.1 x10^3/uL (4.0-11.0) Red Blood Count 4.37 x10^6/uL (3.50-5.40) Hemoglobin 12.2 g/dL (12.0-15.5) Hematocrit 38.1 % (36.0-47.0) Mean Corpuscular Volume 87 fL (79-100) Mean Corpuscular Hemoglobin 28 pg (25-35) Mean Corpuscular Hemoglobin Concent 32 g/dL (31-37) Red Cell Distribution Width 13.5 % (11.5-14.5) Platelet Count 246 x10^3/uL (140-400) Neutrophils (%) (Auto) 81 % (31-73) Lymphocytes (%) (Auto) 12 % (24-48) Monocytes (%) (Auto) 7 % (0-9) Eosinophils (%) (Auto) 1 % (0-3) Basophils (%) (Auto) 0 % (0-3) Neutrophils # (Auto) 10.7 x10^3/uL (1.8-7.7) Lymphocytes # (Auto) 1.5 x10^3/uL (1.0-4.8) Monocytes # (Auto) 0.9 x10^3/uL (0.0-1.1) Eosinophils # (Auto) 0.1 x10^3/uL (0.0-0.7) Basophils # (Auto) 0.0 x10^3/uL (0.0-0.2) Sodium Level 137 mmol/L (136-145) Potassium Level 3.5 mmol/L (3.5-5.1) Chloride Level 104 mmol/L (98-107) Carbon Dioxide Level 22 mmol/L (21-32) Anion Gap 11 (6-14) Blood Urea Nitrogen 11 mg/dL (7-20) Creatinine 0.7 mg/dL (0.6-1.0) Estimated GFR (Cockcroft-Gault) 90.1 BUN/Creatinine Ratio 16 (6-20) Glucose Level 111 mg/dL (70-99) Calcium Level 8.8 mg/dL (8.5-10.1) Total Bilirubin 0.6 mg/dL (0.2-1.0) Aspartate Amino Transf (AST/SGOT) 15 U/L (15-37) Alanine Aminotransferase (ALT/SGPT) 26 U/L (14-59) Alkaline Phosphatase 87 U/L (46-116) Total Protein 7.8 g/dL (6.4-8.2) Albumin 3.8 g/dL (3.4-5.0) Albumin/Globulin Ratio 1.0 (1.0-1.7) Lactic Acid Level 0.8 mmol/L (0.4-2.0) Test 05/04/20 05:55 White Blood Count 7.5 x10^3/uL (4.0-11.0) Red Blood Count 4.08 x10^6/uL (3.50-5.40) Hemoglobin 11.7 g/dL (12.0-15.5) Hematocrit 35.5 % (36.0-47.0) Mean Corpuscular Volume 87 fL (79-100) Mean Corpuscular Hemoglobin 29 pg (25-35) Mean Corpuscular Hemoglobin Concent 33 g/dL (31-37) Red Cell Distribution Width 13.9 % (11.5-14.5) Platelet Count 203 x10^3/uL (140-400) Neutrophils (%) (Auto) 75 % (31-73) Lymphocytes (%) (Auto) 15 % (24-48) Monocytes (%) (Auto) 8 % (0-9) Eosinophils (%) (Auto) 2 % (0-3) Basophils (%) (Auto) 0 % (0-3) Neutrophils # (Auto) 5.6 x10^3/uL (1.8-7.7) Lymphocytes # (Auto) 1.2 x10^3/uL (1.0-4.8) Monocytes # (Auto) 0.6 x10^3/uL (0.0-1.1) Eosinophils # (Auto) 0.1 x10^3/uL (0.0-0.7) Basophils # (Auto) 0.0 x10^3/uL (0.0-0.2) Sodium Level 141 mmol/L (136-145) Potassium Level 3.5 mmol/L (3.5-5.1) Chloride Level 106 mmol/L (98-107) Carbon Dioxide Level 24 mmol/L (21-32) Anion Gap 11 (6-14) Blood Urea Nitrogen 9 mg/dL (7-20) Creatinine 0.7 mg/dL (0.6-1.0) Estimated GFR (Cockcroft-Gault) 90.1 Glucose Level 99 mg/dL (70-99) Calcium Level 8.4 mg/dL (8.5-10.1) Laboratory Tests Test 05/04/20 05:55 White Blood Count 7.5 x10^3/uL (4.0-11.0) Red Blood Count 4.08 x10^6/uL (3.50-5.40) Hemoglobin 11.7 g/dL (12.0-15.5) Hematocrit 35.5 % (36.0-47.0) Mean Corpuscular Volume 87 fL (79-100) Mean Corpuscular Hemoglobin 29 pg (25-35) Mean Corpuscular Hemoglobin Concent 33 g/dL (31-37) Red Cell Distribution Width 13.9 % (11.5-14.5) Platelet Count 203 x10^3/uL (140-400) Neutrophils (%) (Auto) 75 % (31-73) Lymphocytes (%) (Auto) 15 % (24-48) Monocytes (%) (Auto) 8 % (0-9) Eosinophils (%) (Auto) 2 % (0-3) Basophils (%) (Auto) 0 % (0-3) Neutrophils # (Auto) 5.6 x10^3/uL (1.8-7.7) Lymphocytes # (Auto) 1.2 x10^3/uL (1.0-4.8) Monocytes # (Auto) 0.6 x10^3/uL (0.0-1.1) Eosinophils # (Auto) 0.1 x10^3/uL (0.0-0.7) Basophils # (Auto) 0.0 x10^3/uL (0.0-0.2) Sodium Level 141 mmol/L (136-145) Potassium Level 3.5 mmol/L (3.5-5.1) Chloride Level 106 mmol/L (98-107) Carbon Dioxide Level 24 mmol/L (21-32) Anion Gap 11 (6-14) Blood Urea Nitrogen 9 mg/dL (7-20) Creatinine 0.7 mg/dL (0.6-1.0) Estimated GFR (Cockcroft-Gault) 90.1 Glucose Level 99 mg/dL (70-99) Calcium Level 8.4 mg/dL (8.5-10.1) Brief Hospital Course Ms Groves is a 45 year old female with history of hypertension and GERD who presents emergency department c/o left flank pain and abdominal pain. Patient reports pain started at 1300 on 05/02/20. Located in the left side of the back radiates around to the front of the abdomen. Patient has never had pain like this in the past. She has had some dysuria. She has had some nausea and vomiting. No hematuria vaginal bleeding vaginal discharge vomiting diarrhea constipation chest pain shortness breath fever chills. Patient has had sections. No other abdominal surgeries. No vaginal discharge, no diarrhea. Significant nausea with dry heaving. Pain is colicky, comes in waves. WBC 13. CT with non-obstructing small left renal stone, no appendicitis. Admitted for further care. 05/04: WBC 7.5. Afebrile. Left flank pain significantly improved. Asking for something p.o. instead of IV Toradol. Also still complaining of constipation asking for something in addition to the 3 bowel cathartic she has already received. Receiving third dose of Rocephin. Urine culture with 100,000 colony- forming units of E. coli no sensitivities available at this time. Based on patient improvement and improvement in sepsis discussed going home with 7 days of twice daily Bactrim given that she has received an appropriate IV course he can recover from pyelonephritis at home with tramadol. Given that she has a small left punctate renal stone advised to avoid hydrochlorothiazide and possibly switch from lisinopril to losartan to reduce her burden of possible nephrolithiasis. Has outpatient follow-up already scheduled at the [facility]. Problem list: Left pyelonephritis - rocephin, toradol, nausea and pain control. Urine culture with 100K cfu of e. coli, susceptibilities pending. Sepsis - due to above, resolved Nausea and vomiting - admitted for inability to take PO. IVF and IV anti-emetics improved HTN - hold meds for low BP due to sepsis GERD - cont PPI Greater than 30 minutes spent on d/c home with self care Discharge Information Condition at Discharge: Improved Follow Up: Weeks (1) Disposition/Orders: D/C to Home Scheduled Esomeprazole Magnesium (Nexium Capsule) 20 Mg Capsule.dr, 1 CAP PO DAILY, #30 Ref 2 (Reported) Entered as Reported by: ANDREA AYALA on 09/27/162028 Lactobacillus Rhamnosus Gg (Culturelle) 1 Each Cap.sprink, 1 CAP PO BID for UTI for 7 Days, #14 Prescribed by: FORREST YOUNG MD on 05/04/20 1245 Lisinopril (Lisinopril) 2.5 Mg Tablet, 1 TAB PO DAILY, #30 Ref 5 (Reported) Entered as Reported by: ANDREA AYALA on 09/27/162028 Last Action: Reviewed on 05/03/20 [id number] by KAITLYN DANIEL Sulfamethoxazole/Trimethoprim (Bactrim Ds Tablet) 1 Each Tablet, 1 TAB PO BID for Pyelonephritis for 7 Days, #14 Ref 0 Prescribed by: FORREST YOUNG MD on 05/04/20 1245 Scheduled PRN Tramadol Hcl (Ultram) 50 Mg Tablet, 1 TAB PO PRN Q6HRS PRN for PAIN for 6 Days, #20 Prescribed by: FORREST YOUNG MD on 05/04/20 1245 Discontinued Medications Ciprofloxacin Hcl (Cipro) 500 Mg Tablet, 1 TAB PO BID, #14 Discontinued Reason: COMPLETED Prescribed by: Ananya Zimmerman APRN on 09/27/162149 Last Action: Discontinued on 05/04/20 1056 by EL [facility] Hydrochlorothiazide (Hydrochlorothiazide Capsule ) 12.5 Mg Capsule, 1 CAP PO DAILY, #30 Ref 5 (Reported) Entered as Reported by: ANDREA AYALA on 09/27/162028 Promethazine Hcl (Promethazine Hcl) 25 Mg Tablet, 1 TAB PO PRN Q6HRS, #20 Prescribed by: Ananya Zimmerman APRN on 09/27/162149 Justicifation of Admission Dx: Justifications for Admission: Justification of Admission Dx: Yes Sepsis: Infection FORREST YOUNG MD May 04, 2020 13:42
--- NOTE | 2020-05-04 15:14 | NUR ---
Pt discharged home with self care. Discharge instructions and prescriptions discussed. Pt verbalized understanding. Ambulated to entrance and was secured in car with family.
== END 2020-05-04 14:40 | disposition home or self-care (01) ==
LOC: ER 18:19 → 4 NORTH 05-03 00:05
PROVIDERS: ADMIT Internal Medicine; ATTEND Internal Medicine
DX: A41.9 Sepsis, unspecified organism (principal); N12 Tubulo-interstitial nephritis, not specified as acute or chronic; I10 Essential (primary) hypertension; K21.9 Gastro-esophageal reflux disease without esophagitis; K59.00 Constipation, unspecified; N20.0 Calculus of kidney; Z98.891 History of uterine scar from previous surgery
CPT/HCPCS: 36415; 74177; 80048; 80053; 81001; 81025; 83605; 85025; 87040; 87077; 87086; 87186; 96361; 96374; 96375; 96376; 99285; G0378; J0696; J1885; J2270; J2405; J7030; G0379